=== PATIENT | male | born 1995 | race Caucasian/White ===

== ENCOUNTER 2021-12-03 11:04 | Emergency (ER) | payer BC, SELFPAY ==
[2021-12-03 11:22] VITALS: BP 104/85; PULSE 81; RESP 16; TEMP 36.8; O2SAT 100
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
== END 2021-12-03 12:14 | disposition home or self-care (01) ==
LOC: ANHED 12:06
PROVIDERS: Emergency Provider Nurse Practitioner Family
DX: S13.4XXA Sprain of ligaments of cervical spine, initial encounter (principal); V47.5XXA Car driver injured in collision with fixed or stationary object in traffic accident, initial encounter
CPT/HCPCS: 99283